=== PATIENT | female | born 1985 | race Caucasian/White ===

== ENCOUNTER → 2017-07-23 | Outpatient (CLI) | payer BC | LOC: M RAD 14:44 | DX: Z12.31 Encounter for screening mammogram for malignant neoplasm of breast (principal); Z80.3 Family history of malignant neoplasm of breast | CPT/HCPCS: 77067 ==

== ENCOUNTER → 2017-08-06 | Outpatient (REF) | payer BC | LOC: M SFHCCLAY 11:59 | DX: N30.00 Acute cystitis without hematuria (principal) | CPT/HCPCS: 87186 ==

== ENCOUNTER → 2017-11-03 | Outpatient (REF) | payer BC | LOC: M SFHCCLAY 13:52 | DX: R50.9 Fever, unspecified (principal) ==

== ENCOUNTER → 2017-11-12 | Outpatient (CLI) | payer BC | LOC: M RAD 13:20 | DX: N92.0 Excessive and frequent menstruation with regular cycle (principal) | CPT/HCPCS: 76856 ==

== ENCOUNTER → 2017-12-09 | Outpatient (REF) | payer BC ==
[2017-12-09 12:19] LABS: HEMATOCRIT 38.6 % (36.0-47.0); MEAN CORPUSCULAR HEMOGLOBIN 29.4 pg (27.0-33.0); MEAN CORPUSCULAR HGB CONC 33.7 g/dl (32.0-36.5); MEAN CORPUSCULAR VOLUME 87.3 fl (80.0-96.0); PLATELET COUNT, AUTOMATED 264 10^3/uL (150-450); RED BLOOD COUNT 4.42 10^6/uL (4.00-5.40); RED CELL DISTRIBUTION WIDTH 13.2 % (11.5-14.5); WHITE BLOOD COUNT 5.4 10^3/uL (4.0-10.0)
[2017-12-09 12:46] LABS: FREE T4 1.22 NG/DL (0.76-1.46)
[2017-12-09 13:17] LABS: PROGESTERONE 0.7 NG/ML
[2017-12-14 08:11] LABS: 17 HYDROXY PROGESTERONE 15 ng/dL (.); DEHYDROEPIANDROSTERONE SULFATE 304.5 ug/dL (84.8-378.0); INSULIN FREE 4.6 uU/mL (.); INSULIN TOTAL2 4.7 uU/mL (.); TESTOSTERONE FREE (DIRECT) 3.8 pg/mL (0.0-4.2)
== END ==
LOC: M LABDRAWC 11:22
DX: N92.0 Excessive and frequent menstruation with regular cycle (principal)
CPT/HCPCS: 83525

== ENCOUNTER → 2018-03-24 | Outpatient (CLI) | payer BC ==
[2018-03-24 13:27] LABS: BASO % 0.2 % (0.0-1.0); EOS % 0.4 % (0.0-3.0); HEMATOCRIT 36.9 % (36.0-47.0); HEMOGLOBIN 12.5 g/dl (12.0-15.5); IMMATURE GRANULOCYTE % 0.5 % (0-3.0); LYMPH # 1.6 10^3/uL (1.5-4.5); LYMPH % 16.4 % (24.0-44.0); MEAN CORPUSCULAR HEMOGLOBIN 29.3 pg (27.0-33.0); MEAN CORPUSCULAR HGB CONC 33.9 g/dl (32.0-36.5); MEAN CORPUSCULAR VOLUME 86.4 fl (80.0-96.0); MONO # 0.6 10^3/uL (0.0-0.8); MONO % 5.6 % (0.0-5.0); NEUTROPHILS # 7.6 10^3/uL (1.8-7.7); NEUTROPHILS % 76.9 % (36.0-66.0); PLATELET COUNT, AUTOMATED 259 10^3/uL (150-450); RED BLOOD COUNT 4.27 10^6/uL (4.00-5.40); RED CELL DISTRIBUTION WIDTH 13.3 % (11.5-14.5); WHITE BLOOD COUNT 9.9 10^3/uL (4.0-10.0)
[2018-03-24 14:57] LABS: CHLAMYDIA DNA AMPLIFICATION NEGATIVE (NEGATIVE); GC DNA AMPLIFICATION NEGATIVE (NEGATIVE)
[2018-03-24 15:08] LABS: ALBUMIN 3.2 GM/DL (3.2-5.2); ALBUMIN/GLOBULIN RATIO 0.97 (1.00-1.93); ALKALINE PHOSPHATASE 55 U/L (45-117); ALT/SGPT 22 U/L (12-78); ANION GAP 11 MEQ/L (8-16); AST/SGOT 10 U/L (7-37); BILIRUBIN,TOTAL 0.2 MG/DL (0.2-1.0); BLOOD UREA NITROGEN 8 MG/DL (7-18); CALCIUM LEVEL 8.6 MG/DL (8.5-10.1); CARBON DIOXIDE LEVEL 22 MEQ/L (21-32); CHLORIDE LEVEL 107 MEQ/L (98-107); CREATININE FOR GFR 0.39 MG/DL (0.55-1.30); GLOMERULAR FILTRATION RATE > 60.0 (>60); GLUCOSE, FASTING 72 MG/DL (70-100); LDH LACTATE DEHYDROGENASE 179 U/L (84-246); POTASSIUM SERUM 3.7 MEQ/L (3.5-5.1); SODIUM LEVEL 140 MEQ/L (136-145); TOTAL PROTEIN 6.5 GM/DL (6.4-8.2); URIC ACID 3.5 MG/DL (2.6-6.0)
[2018-03-24 16:26] LABS: CREATININE,RANDOM URINE 88.1 MG/DL
[2018-03-24 22:50] LABS: ESTIMATED AVERAGE GLUCOSE 88 MG/DL (60-110); HEMOGLOBIN A1c 4.7 %
[2018-03-25 11:57] LABS: RUBELLA IgG QUALITATIVE IMMUNE (IMMUNE)
[2018-03-25 12:03] LABS: HBsAg Prenatal NEGATIVE (NEGATIVE)
[2018-03-25 12:27] LABS: HEPATITIS C VIRUS ABY INDEX 0.2 INDEX (<0.8); HIV 1&2 SCREEN CENTAUR NEGATIVE (NEGATIVE)
== END ==
LOC: M LAB 12:33
DX: O99.211 Obesity complicating pregnancy, first trimester (principal); Z87.59 Personal history of other complications of pregnancy, childbirth and the puerperium
CPT/HCPCS: 84460

== ENCOUNTER → 2018-04-20 | Outpatient (CLI) | payer BC | LOC: M RAD 09:48 | DX: Z34.82 Encounter for supervision of other normal pregnancy, second trimester (principal) | CPT/HCPCS: 76811 ==

== ENCOUNTER 2018-05-26 15:24 | Outpatient (CLI) | payer BC ==
[2018-05-26] MEDS ORDERED: LACTATED RINGER'S 1000 ML IV ×2 (16:15)
[2018-05-26] MEDS ORDERED: LR 1,000 ML IV ×2 (16:15)
[2018-05-26 17:45] LABS: AMORPHOUS SEDIMENT LARGE (NEGATIVE); APPEARANCE, URINE TURBID (CLEAR); BACTERIA, URINE AUTO NEGATIVE (NEGATIVE); BILIRUBIN, URINE AUTO 1+ (NEGATIVE); BLOOD, URINE BLOOD 2+ (NEGATIVE); COLOR, URINE AMBER (YELLOW); GLUCOSE, URINE (UA) AUTO 1+ mg/dL (NEGATIVE); KETONE, URINE AUTO 1+ mg/dL (NEGATIVE); LEUKOCYTE ESTERASE, URINE AUTO 2+ (NEGATIVE); MUCUS, URINE LARGE (NEGATIVE); NITRITE, URINE AUTO NEGATIVE (NEGATIVE); PROTEIN, URINE AUTO 2+ mg/dL (NEGATIVE); RBC, URINE AUTO 82 /HPF (0-3); SPECIFIC GRAVITY URINE AUTO 1.018 (1.002-1.035); SQUAMOUS EPITHELIAL CELL UR AU 35 /HPF (0-6); WBC, URINE AUTO TNTC /HPF (0-3)
[2018-05-26 19:43] LABS: CHLAMYDIA DNA AMPLIFICATION NEGATIVE (NEGATIVE); GC DNA AMPLIFICATION NEGATIVE (NEGATIVE)
[2018-05-26] MEDS: ceFAZolin SOD 1 GM in D5W MINI-BAG PLUS 50 ML IV (20:24)
[2018-05-26 21:19] LABS: AMORPHOUS SEDIMENT MODERATE (NEGATIVE); APPEARANCE, URINE TURBID (CLEAR); BACTERIA, URINE AUTO NEGATIVE (NEGATIVE); BILIRUBIN, URINE AUTO NEGATIVE (NEGATIVE); BLOOD, URINE BLOOD 3+ (NEGATIVE); COLOR, URINE AMBER (YELLOW); GLUCOSE, URINE (UA) AUTO NEGATIVE (NEGATIVE); KETONE, URINE AUTO 2+ mg/dL (NEGATIVE); LEUKOCYTE ESTERASE, URINE AUTO 3+ (NEGATIVE); MUCUS, URINE LARGE (NEGATIVE); NITRITE, URINE AUTO NEGATIVE (NEGATIVE); PROTEIN, URINE AUTO 1+ mg/dL (NEGATIVE); RBC, URINE AUTO 24 /HPF (0-3); SPECIFIC GRAVITY URINE AUTO 1.012 (1.002-1.035); SQUAMOUS EPITHELIAL CELL UR AU 13 /HPF (0-6); WBC, URINE AUTO TNTC /HPF (0-3)
[2018-05-27 10:48] LABS: HEPATITIS A ANTIBODY IGM NEGATIVE (NEGATIVE); HEPATITIS B CORE ANTIBODY IGM NEGATIVE (NEGATIVE); HEPATITIS B SURFACE ANTIGEN NEGATIVE (NEGATIVE)
[2018-05-27 10:48] LABS: HEPATITIS C VIRUS ABY INDEX < 0.0 INDEX (<0.8)
[2018-05-27 10:58] LABS: HIV 1&2 SCREEN CENTAUR NEGATIVE (NEGATIVE)
== END 2018-05-27 00:36 | disposition home or self-care (01) ==
LOC: M LDO 15:24
DX: O26.892 Other specified pregnancy related conditions, second trimester (principal); R10.30 Lower abdominal pain, unspecified; O26.852 Spotting complicating pregnancy, second trimester; Z3A.25 25 weeks gestation of pregnancy
CPT/HCPCS: J0690

== ENCOUNTER → 2018-06-27 | Outpatient (CLI) | payer BC ==
[2018-06-27 12:28] LABS: BASO % 0.1 % (0.0-1.0); EOS # 0.1 10^3/uL (0.0-0.50); EOS % 0.5 % (0.0-3.0); HEMATOCRIT 35.9 % (36.0-47.0); HEMOGLOBIN 12.1 g/dl (12.0-15.5); IMMATURE GRANULOCYTE % 0.4 % (0-3.0); LYMPH # 1.4 10^3/uL (1.5-4.5); LYMPH % 13.1 % (24.0-44.0); MEAN CORPUSCULAR HEMOGLOBIN 30.3 pg (27.0-33.0); MEAN CORPUSCULAR HGB CONC 33.7 g/dl (32.0-36.5); MONO # 0.6 10^3/uL (0.0-0.8); MONO % 5.8 % (0.0-5.0); NEUTROPHILS # 8.5 10^3/uL (1.8-7.7); NEUTROPHILS % 80.1 % (36.0-66.0); PLATELET COUNT, AUTOMATED 246 10^3/uL (150-450); RED BLOOD COUNT 3.99 10^6/uL (4.00-5.40); RED CELL DISTRIBUTION WIDTH 13.3 % (11.5-14.5); WHITE BLOOD COUNT 10.6 10^3/uL (4.0-10.0)
[2018-06-27 12:46] LABS: GLUCOSE CHALLENGE TEST 1 HOUR 114 MG/DL (LESS THAN 140)
== END ==
LOC: M LAB 11:05
DX: Z36.89 Encounter for other specified antenatal screening (principal)
CPT/HCPCS: 82950

== ENCOUNTER → 2018-07-02 | Outpatient (REF) | payer BC | LOC: M LAB REF 16:57 | DX: Z36.89 Encounter for other specified antenatal screening (principal) | CPT/HCPCS: 87086 ==

== ENCOUNTER → 2018-07-31 | Outpatient (CLI) | payer BC ==
[~2018-07-31] MED LIST: ACET50TA PO; CEPH500C PO; COLA50CA3 PO; IBUP600T26 PO; IBUP60TA PO; LABE20TAB PO; MAPA500T2 PO; RANI15TA PO
--- NOTE | 2018-07-31 19:52 | REP ---
FOLLOWUP OB ULTRASOUND: 07/31/2018. Clinical history: Preexisting essential hypertension. Evaluate growth. Comparison: 04/20/2018. Based on her initial ultrasound she would be 35 weeks 3 days with EDC 09/01/2018. There is a single intrauterine gestation in vertex position with cervix 3.7 cm long and closed. There is an anterior grade 2 placenta without previa or abruption. Amniotic fluid volume is visually normal and the index 11.8 cm and the largest fluid pocket 3.4 cm. Mid cord umbilical artery Doppler shows an S/D ratio 2.32 with normal forward diastolic flow. Resistive index is 0.57. biometry. BPD 9.2 cm 37 weeks 2 days HC 33 cm 37 weeks 4 days AC 32.3 cm 36 weeks 1 day FL 6.8 cm 35 weeks H L 6 cm 34 weeks 3 days. This gives average ultrasound age 36 weeks 1 day with EDC 08/27/2018. Estimated weight 2865 grams or 6 pounds 5 ounces. This is 63rd percentile for dating based on the initial ultrasound. This is normal interval growth. heart activity noted at 144. anatomy screen shows cranial vault, lateral ventricles, choroid plexus, thalami, cavum septum pellucidum, lungs, diaphragm, stomach, three-vessel cord, kidneys and bladder all unremarkable. The structures are not visualized but all have previously been seen and appear normal. No evidence of a nuchal cord today. Impression: 1. Single intrauterine gestation in vertex position with a closed 3.7 cm long cervix, anterior grade 2 placenta without previa or abruption and visually normal amniotic fluid volume with an index 11.8 cm. 2. Size and dates show normal interval growth compared to initial ultrasound with estimated weight 63rd percentile. All of this normal. 3. The visualized anatomic structures were unremarkable. Much of the anatomy obscured by crowding from late third trimester timing of this examination. Anatomy previously screen unremarkable. Heart rate 144 and regular. Electronically Signed by Joseph Smith MD 08/02/2018 11:47 A
== END ==
LOC: M RAD 14:46
PROVIDERS: ATTEND Specialist
DX: Z36.9 Encounter for antenatal screening, unspecified (principal); Z3A.36 36 weeks gestation of pregnancy

== ENCOUNTER → 2018-08-10 | Outpatient (REF) | payer BC | LOC: M LAB REF 17:31 | PROVIDERS: ATTEND Advanced Practice Midwife | DX: Z34.83 Encounter for supervision of other normal pregnancy, third trimester (principal); Z3A.00 Weeks of gestation of pregnancy not specified ==

== ENCOUNTER 2018-08-16 09:11 | Inpatient (IN) | payer BC ==
[2018-08-16] VITALS (111 sets, daily range): BP systolic 81–180; BP diastolic 45–110
[~2018-08-16] VITALS: Ht 177.8 cm; Wt 109.8 kg
[2018-08-16] MEDS ORDERED: LACTATED RINGER'S 1000 ML IV STA (12:12)
--- NOTE | 2018-08-16 12:22 | NUR ---
L&D H&P HPI: 32 year old at 37+1 weeks estimated gestation. Expected date of confinement: 09/05/18. dated by a first TM US. Presents today with complaint of leakage of clear fluid since this AM. Denies vaginal bleeding, or frequent/painful uterine contractions. Reports regular movement. course c/b h/o GHTN labs: Blood type O+, antibody screen negative, rubella immune, VDRL nonreactive , hepatitis B surface antigen negative, HIV negative, hepatitis C antibody negative, GC/CT negative, aneuploidy/maternal serum screening: not done, 1 hour glucose challenge test: 114, GBS negative Vaccinations: Tdap 07/20/18 Radiology/OB US: no anomalies or placental abnormalities detected. History Past medical history: GHTN (CHTN?) Surgical history: none Medications: PNV Allergies: Sulfa POULTRY CULLER history: no STI/gHSV, no dysplasia OB history: x 3 (41, 36, and 38 weeks; all IOL for GHTN); largest 8lbs 13oz.. SAB x 1. Social history: no t/e/d Family history: DM2, HTN, Leukemia (sister, age 26). no MR, VTE Objective Vitals: Normotensive, normal heart rate, afebrile Heart: Regular rate and rhythm. No murmurs, rubs or gallops. Lungs: Clear to auscultation bilaterally. No wheezes, crackles, rales or rhonchi. Abdomen: Uterine fundal height consistent with dates. No guarding or rebound tenderness. Extremities: No clubbing, cyanosis or edema. Normal deep tendon reflexes. Sterile vaginal exam: 3-4 cm, 75 %effacement, -3station, cephalic, grossly ruptured (+nitrazine/ferning) External monitoring: heart rate category 1 Tocodynamometer: contractions occurring intermittently Assessment/Plan 32 year old at 37+1 weeks gestation. Diagnosis: Premature rupture of membranes. Reassuring and maternal status. -Admit to labor and delivery with routine labs and orders -External monitoring and tocodynamometer -Pediatrics and anesthesia consultations as needed. -Augment labor with Pitocin Dr. iMchael Dejesus, DO, FACOG
[2018-08-16] MEDS ORDERED: OXYTOCIN DRIP 30 UNITS in APPROPRIATE DILUENT 1 EA IV SCH ×2 (12:30→17:51)
[2018-08-16 13:18] LABS: HEMOGLOBIN 12.8 g/dl (12.0-15.5); MEAN CORPUSCULAR HEMOGLOBIN 29.4 pg (27.0-33.0); MEAN CORPUSCULAR HGB CONC 33.7 g/dl (32.0-36.5); MEAN CORPUSCULAR VOLUME 87.4 fl (80.0-96.0); PLATELET COUNT, AUTOMATED 271 10^3/uL (150-450); RED BLOOD COUNT 4.35 10^6/uL (4.00-5.40); WHITE BLOOD COUNT 13.2 10^3/uL (4.0-10.0)
[2018-08-16 13:21] LABS: ALT/SGPT 20 U/L (12-78); BILIRUBIN,TOTAL 0.5 MG/DL (0.2-1.0); GLOMERULAR FILTRATION RATE > 60.0 (>60); LDH LACTATE DEHYDROGENASE 176 U/L (84-246); URIC ACID 3.8 MG/DL (2.6-6.0)
[2018-08-16 13:31] LABS: TOTAL PROTEIN,RANDOM URINE 38.6 MG/DL (0.0-12.0)
[2018-08-16] MEDS ORDERED: FENTANYL 2MCG/ML ROPIVACAINE 0.2% IN 0.9% NACL 100ML IVBAG As Ordered ONE (13:37)
[2018-08-16] MEDS: LR 1,000 ML IV SCH ×3 (14:17→17:51)
--- NOTE | 2018-08-16 15:31 | NUR ---
Progress Note Called into room by RN and Anesthesia provider. Pt was having her epidural administered. Shortly after the test dose, the patient complained of difficulty breathing / swallowing, numbness in the upper and lower extremities, and feeling faint. A syncopal episode ensued, followed by an altered mental sta tus. Convulsions were not witnessed. After several minutes, she became responsive to her name and she was able to verbalize how she was feeling. She was able to follow commands and exhibit control of her upper extremities. Intrathecal administration of anesthetics suspected (test dose of lidocaine, and loading dose of Fentanyl, Ropivacaine). Upon onset of her symptoms, she became bradycardic into 50-60bpm. BP 81/45. O2 sat: 96-100% with non-rebreather face mask. She was given a dose of ephedrine and phenylephrine by Anesthesia, and her BP and HR quickly improved. FHR pattern changed from Cat I to Cat II for a brief period of time at the peak of patient's symptoms. An FSE was easily placed shortly after I arrived into the room and noted a Cat II FHR. Pt still expressing clear amniotic fluid. SVE: 4-5cm/75%/-3. FHR recovered back to Cat I after administration of ephedrine and phenylephrine. Discussed with anesthesia that the plan is to continue supportive care and close observation. Will restart Pitocin/augmentation of labor once Cat I persists. Rui Dejesus, DO
[2018-08-16] MEDS ORDERED: FENTANYL/ROPIVACAINE/NACL BAG 100 ML EPIDURAL SCH (16:00)
[2018-08-16] MEDS ORDERED: diphenhydrAMINE INJ 50MG/ML VIAL (J1200) IV PRN (16:00)
[2018-08-16] MEDS ORDERED: REFRIGERATOR IV KEYS XX PRN (16:00)
[2018-08-16] MEDS ORDERED: LACTATED RINGER'S 1000 ML IV PRN (16:00)
[2018-08-16] MEDS ORDERED: NALOXONE INJ 0.4 MG/1 ML VIAL (J2310) IV PRN (16:00)
[2018-08-16] MEDS ORDERED: ONDANSETRON 4MG/2ML VIAL (J2405) IV PRN ×2 (16:00→18:00)
[2018-08-16] MEDS ORDERED: EPIDURAL COMMENT XX SCH (16:00)
[2018-08-16] MEDS ORDERED: EPIDURAL/PCA KEYS XX PRN (16:00)
[2018-08-16] MEDS ORDERED: ePHEDrine SULFATE 25 MG/5 ML(5MG/ML) SYRINGE IV PRN (16:00)
--- NOTE | 2018-08-16 17:58 | NUR ---
Delivery note Spontaneous vaginal delivery Estimated gestational age at delivery: 37+1 weeks The active phase and second stage of labor progressed in normal fashion. Patient received Pitocin labor augmentation. FHR Cat I. The head delivered left occiput anterior and restituted left occiput transverse. No nuchal cord was noted. The anterior shoulder delivered with gentle downward guidance and the remainder of the body delivered with ease. Cord clamping was delayed for approximately 1 minute after delivery. After doubly clamping the cord, I cut the cord. The was placed on the patient's chest for immediate bonding. [place] data: Apgars 9 and 9. weight 3070 grams 6 pounds, 12 ounces. Time of delivery: 1733. Sex: Female. The third stage of labor was actively managed with a bolus of IV Pitocin (30 units in 500 mL of normal saline). The placenta delivered with manual extraction, and was noted to be completely intact with no missing cotyledons at 1739. A three-vessel cord with a central insertion was noted. After delivery of the placenta, the uterine fundus was approximately 2 cm below the umbilicus and firm. IV Pitocin was continued to maintain uterine tone. A normal, low level of uterine bleeding was noted. The cervix, vagina, vulva and perineum were inspected for lacerations. No laceration was noted. Excellent hemostasis was noted. Estimated blood loss: 200ml. All sponges, needles, and instruments were accounted for per PRODUCTION ENGINE REPAIRER department protocol. Michael Dejesus D.O., F.Brooklynn.Maria Elena.OVicente.
[2018-08-16] MEDS ORDERED: RHOGAM 300 MCG (1500 IU) INJ (J2790) IM SCH (18:00)
[2018-08-16] MEDS ORDERED: MEASLES,MUMPS,RUBELLA VACCINE INJ (MMR-II) (90707) SC SCH (18:00)
[2018-08-16] MEDS ORDERED: DOCUSATE SODIUM 100 MG CAP PO PRN (18:00)
[2018-08-16] MEDS ORDERED: DIBUCAINE 1% OINTMENT 30GM TOP PRN (18:00)
[2018-08-16] MEDS ORDERED: PROMETHAZINE 25 MG TAB PO PRN (18:00)
[2018-08-16] MEDS ORDERED: LABETALOL HCL 100 MG/20 ML VIAL IV STA (18:11)
[2018-08-16] MEDS ORDERED: ceFAZolin 2 GM/D5W 50 ML IV BAG (J0690 PER 500MG) As Ordered ONE (18:15)
[2018-08-16] MEDS ORDERED: KETOROLAC 30 MG/ML VIAL (J1885) As Ordered ONE (18:39)
[2018-08-16] MEDS ORDERED: KETOROLAC 30 MG/ML VIAL (J1885) IV ONE (19:00)
[2018-08-16] MEDS: ACETAMINOPHEN 500 MG TAB PO PRN (22:01)
[2018-08-17 00:45] VITALS: BP 136/80
[2018-08-17] MEDS: LR 1,000 ML IV SCH (01:51)
[2018-08-17] MEDS: IBUPROFEN 800 MG TAB PO PRN ×3 (02:30→19:35)
[2018-08-17 06:05] VITALS: BP 134/75
[2018-08-17] MEDS: ACETAMINOPHEN 500 MG TAB PO PRN ×2 (06:58→21:05)
--- NOTE | 2018-08-17 07:01 | NUR ---
PPD#1 s/p Pain well controlled, voiding spontaneously, ambulating without assistance, tolerating PO, and lochia is decreasing / minimal. Denies CAZARES, visual changes, RUQ pain, sob, or cp. VSS, currently normotensive (intermittently hypertensive/mild range), normal HR, afebrile H: RRR no m/g/r L: CTA b/l Abd: soft,nt,nd,U-2cm firm and nt Ext: no c/c/e A/P: PPD#1. Hemodynamically stable, afebrile, good pain control. -Routine care -D/c home tomorrow. Rui Dejesus DO
[2018-08-17] MEDS: PRENATAL VITAMINS CHEWABLE TABLET PO SCH (09:11)
[2018-08-17 18:00] VITALS: BP 136/73
[2018-08-18] MEDS: IBUPROFEN 800 MG TAB PO PRN (03:11)
[2018-08-18 06:00] VITALS: BP 131/55
[2018-08-18] MEDS ORDERED: IBUP1TAB7 PO (07:32)
[2018-08-18] MEDS ORDERED: PRENTAB7 PO (07:32)
[2018-08-18] MEDS ORDERED: ACET-683 PO (07:32)
[2018-08-18] MEDS: PRENATAL VITAMINS CHEWABLE TABLET PO SCH (07:55)
== END 2018-08-18 11:10 | disposition home or self-care (01) | DRG 541 ==
LOC: M LDO 09:11 → M LDI 12:11 → M OBS 08-17 00:23
PROVIDERS: ADMIT Obstetrics & Gynecology; ATTEND Obstetrics & Gynecology
PROC: 10E0XZZ Delivery of Products of Conception, External Approach (ICD-10-PCS; principal; 2018-08-16)
PROC: 10D17Z9 Manual Extraction of Products of Conception, Retained, Via Natural or Artificial Opening (ICD-10-PCS; 2018-08-16)
DX: O42.02 Full-term premature rupture of membranes, onset of labor within 24 hours of rupture (principal); Z37.0 Single live birth; Z3A.37 37 weeks gestation of pregnancy; O73.0 Retained placenta without hemorrhage

== ENCOUNTER 2018-08-30 06:29 | Emergency (ER) | payer BC ==
[~2018-08-30] VITALS: Ht 177.8 cm; Wt 100.0 kg
[~2018-08-30 06:29] MED LIST changes: +ACET-683 PO; +IBUP1TAB7 PO; +PRENTAB7 PO
[2018-08-30] MEDS ORDERED: NS 1,000 ML IV ONE (07:30)
[2018-08-30 07:49] LABS: BASO % 0.4 % (0.0-1.0); EOS # 0.1 10^3/uL (0.0-0.50); EOS % 0.6 % (0.0-3.0); HEMATOCRIT 44.3 % (36.0-47.0); LYMPH # 1.4 10^3/uL (1.5-4.5); LYMPH % 12.9 % (24.0-44.0); MEAN CORPUSCULAR HEMOGLOBIN 29.5 pg (27.0-33.0); MEAN CORPUSCULAR HGB CONC 33.9 g/dl (32.0-36.5); MEAN CORPUSCULAR VOLUME 87.2 fl (80.0-96.0); MONO # 0.5 10^3/uL (0.0-0.8); MONO % 4.6 % (0.0-5.0); NEUTROPHILS # 8.7 10^3/uL (1.8-7.7); PLATELET COUNT, AUTOMATED 348 10^3/uL (150-450); RED BLOOD COUNT 5.08 10^6/uL (4.00-5.40); WHITE BLOOD COUNT 10.8 10^3/uL (4.0-10.0)
[2018-08-30 08:18] LABS: ALBUMIN 3.5 GM/DL (3.2-5.2); ALT/SGPT 20 U/L (12-78); BILIRUBIN,DIRECT 0.1 MG/DL (0.0-0.2); BILIRUBIN,TOTAL 0.3 MG/DL (0.2-1.0); BLOOD UREA NITROGEN 12 MG/DL (7-18); CALCIUM LEVEL 8.6 MG/DL (8.5-10.1); CARBON DIOXIDE LEVEL 26 MEQ/L (21-32); CHLORIDE LEVEL 105 MEQ/L (98-107); CREATININE FOR GFR 0.59 MG/DL (0.55-1.30); GLOMERULAR FILTRATION RATE > 60.0 (>60); GLUCOSE, FASTING 91 MG/DL (70-100); POTASSIUM SERUM 4.1 MEQ/L (3.5-5.1); SODIUM LEVEL 138 MEQ/L (136-145); TOTAL PROTEIN 7.6 GM/DL (6.4-8.2)
[2018-08-30 10:30] VITALS: BP 131/80
[2018-08-30] MEDS ORDERED: METHYLERGONOVINE MALEATE 0.2 MG/ML VIAL (J2210) IM STA (10:41)
[2018-08-30] MEDS ORDERED: METH0.2T53 PO (10:42)
--- NOTE | 2018-08-30 12:26 | REP ---
PELVIC ULTRASOUND: Real-time sonographic evaluation of the pelvis performed utilizing transabdominal technique. Patient is 2 weeks and therefore endovaginal imaging is not performed. Bladder measures 10.2 x 6.1 x 9.6 cm. Uterus measures 10.7 x 6.8 x 8.7 cm. Two fibroids are seen on the left measuring 2.4 x 2.2 x 2.5 cm and 1.2 x 0.7 x 0.9 cm. Endometrial thickness is 12 mm. Endometrium is diffusely heterogeneous. I cannot exclude a small amount of retained products of conception. There is no fluid collection in the endometrial cavity. Ovaries are normal in size and echotexture, right ovary measuring 2.6 x 1.6 x 1.7 cm and left ovary 2.6 x 1.9 x 2.0 cm. There is no adnexal mass or free fluid. There is no torsion of either ovary, resistive index right ovary 0.67 and left ovary 0.56. IMPRESSION: Endometrium measures 12 mm and is heterogeneous without an endometrial fluid collection. Cannot rule out small amount of retained products of conception. Two fibroids are seen in the left uterus. No adnexal mass, free fluid, or torsion. Electronically Signed by Eusebio Hagen MD 08/30/2018 07:03 P
[2018-09-11] MEDS ORDERED: IBUP200C25 PO (15:10)
== END 2018-08-30 10:56 | disposition home or self-care (01) ==
LOC: M ED 06:29
DX: O99.89 Other specified diseases and conditions complicating pregnancy, childbirth and the puerperium (principal); N93.9 Abnormal uterine and vaginal bleeding, unspecified; O16.3 Unspecified maternal hypertension, third trimester; Z3A.37 37 weeks gestation of pregnancy; Z88.2 Allergy status to sulfonamides
CPT/HCPCS: 76856; 80048; 80076; 85025; 86850; 86900; 86901; 87040; 93041; 93976; 96372; 99284; J2210

== ENCOUNTER 2018-09-16 09:58 | Day surgery (SDC) | payer BC ==
[~2018-09-16] VITALS: Ht 177.8 cm; Wt 98.9 kg
[~2018-09-16 09:58] MED LIST changes: +IBUP200C25 PO; +LIDOCAINE 2% INJ 100 MG/5 ML SDV (FOR ANES.) As Ordered ONE; +METH0.2T53 PO; +MIDAZOLAM INJ 2 MG/2 ML VIAL (J2250) As Ordered ONE; +ONDANSETRON 4MG/2ML VIAL (J2405) As Ordered ONE; +PROPOFOL 200 MG/20 ML VIAL As Ordered ONE; +ROCURONIUM BROMIDE 50 MG/5 ML VIAL As Ordered ONE; +dexameTHASONE 4 MG/ML 1ML VIAL (J1100) As Ordered ONE; +fentaNYL 250 MCG/5 ML INJECTION (J3010) As Ordered ONE
[2018-09-16 10:20] LABS: HEMATOCRIT 41.9 % (36.0-47.0); HEMOGLOBIN 13.9 g/dl (12.0-15.5); MEAN CORPUSCULAR HGB CONC 33.2 g/dl (32.0-36.5); MEAN CORPUSCULAR VOLUME 87.5 fl (80.0-96.0); PLATELET COUNT, AUTOMATED 290 10^3/uL (150-450); RED BLOOD COUNT 4.79 10^6/uL (4.00-5.40); WHITE BLOOD COUNT 7.1 10^3/uL (4.0-10.0)
[2018-09-16] MEDS ORDERED: BUPIVACAINE HCL 0.25% 30 ML VIAL As Ordered ONE (10:30)
[2018-09-16 10:51] LABS: HCG, SERUM QUALITATIVE NEGATIVE (NEGATIVE)
[2018-09-16] MEDS ORDERED: PHENYLephrine HCL 500 MCG/5 ML (100MCG/ML) SYRINGE (J2370) As Ordered ONE (11:17)
[2018-09-16] MEDS ORDERED: PHENYLEPHRINE INJ 10MG/ML VIAL (J2370) As Ordered ONE (11:20)
[2018-09-16] MEDS ORDERED: GLYCOPYRROLATE INJ 0.2 MG/ML 2 ML VIAL As Ordered ONE (11:20)
[2018-09-16] MEDS ORDERED: KETOROLAC 60 MG/2 ML VIAL (J1885) As Ordered ONE (11:33)
[2018-09-16] MEDS ORDERED: NEOSTIGMINE 10 MG/10 ML VIAL (J2710) As Ordered ONE (11:35)
[2018-09-16] MEDS ORDERED: HYDROmorphone HCL 2 MG/ML 1ML VIAL (J1170) As Ordered ONE (11:36)
[2018-09-16] MEDS ORDERED: IBUP1TAB7 PO (11:57)
[2018-09-16] MEDS ORDERED: ePHEDrine SULFATE 25 MG/5 ML(5MG/ML) SYRINGE As Ordered ONE (11:59)
[2018-09-16] MEDS ORDERED: PERCOCET PO (12:01)
[2018-09-16] MEDS ORDERED: LR 1,000 ML IV ONE (12:30)
[2018-09-16] MEDS ORDERED: LR 1,000 ML IV SCH (12:30)
[2018-09-16] MEDS ORDERED: fentaNYL 100 MCG/2 ML INJECTION (J3010) IV PRN (12:30)
[2018-09-16] MEDS ORDERED: ONDANSETRON 4MG/2ML VIAL (J2405) IV PRN (12:30)
[2018-09-16] MEDS ORDERED: NORCO, ANEXSIA 5/325MG TABLET (HYDROcodone/ACETAMINOPHEN) PO PRN (12:30)
[2018-09-16] MEDS ORDERED: PERCOCET 5MG/325MG TAB PO PRN (12:30)
--- NOTE | 2018-09-16 12:57 | RO ---
DATE OF PROCEDURE: 09/16/2018 PREOPERATIVE DIAGNOSIS: Satisfied parity with undesired fertility. POSTOPERATIVE DIAGNOSIS: Satisfied parity with undesired fertility. PROCEDURE PERFORMED: Laparoscopic bilateral salpingectomy for purpose of tubal ligation. SURGEON: Jes Hernández MD SILVER STEWARD: None. ANESTHESIA: General endotracheal anesthesia. ESTIMATED BLOOD LOSS: 5 mL. INTRAVENOUS FLUIDS: 800 mL of lactated Ringer solution. URINE OUTPUT: 300 mL. OPERATIVE FINDINGS: Patient with a small right follicular cyst, otherwise normal appearing pelvic anatomy, anterior uterus, bilateral adnexa. Appendix was visualized and appeared to be normal. SPECIMENS: Bilateral fallopian tubes. PREOPERATIVE ANTIBIOTICS: None. INFECTION CLASSIFICATION: 1. DESCRIPTION OF OPERATION: After informed consent was obtained and written content was reviewed, the patient was brought to the operating room where general endotracheal anesthesia was obtained. She was then placed in lithotomy position and was prepped and draped in a normal sterile fashion. A time-out in operating room was then performed identifying the patient, procedure to be performed, as well as drug allergy. A bivalve speculum was placed revealing the cervix. The anterior lip of the cervix was grasped with a single-tooth tenaculum. The uterus was then sounded to 11 cm. A Hulka tenaculum was then advanced for means to manipulate the uterus. Single-tooth tenaculum and speculum was then removed. A Lui catheter was then placed and set gravity. Gloves were changed and attention was turned to the patient's abdomen, where a 0.25% Marcaine was infused in umbilical region. An incision was made in this area and a 5 mm trocar and sleeve was advanced through this incision. The laparoscope was replaced revealing intra-abdominal placement. A pneumoperitoneum was then obtained with CO2 gas. The abdomen was then surveyed with the above noted finding. Next, air was infused 2 cm above the pubis symphysis and in the midline of this area an incision was made and an 8 mm trocar and sleeve was advanced through this incision under direct visualization. A third port was placed parallel to the umbilicus. This area was infused with 0.25% Marcaine. An incision was made in this area and a 5 mm trocar and sleeve was advanced through this incision under direct visualization. Next, the right fallopian tube was placed on traction. Using a Harmonic Ender scalpel device, the mesosalpinx was cauterized and ligated with good hemostasis noted below the right fallopian tube and was transected at the level of the uterus once again with good hemostasis noted. The specimen was then brought out and sent to pathology. In a similar fashion, the fallopian tube was placed on traction. Using Harmonic Ender scalpel device, the mesosalpinx was cauterized below the fallopian tube and the fallopian tube was transected at the level of the uterus with good hemostasis noted. The specimen was brought out through the port site. Surgical sites were inspected and noted to be hemostatic. Pneumoperitoneum was then released. Instruments were removed from the patient's abdomen. Trocars were removed. The incisions were closed with #4-0 Monocryl and was dressed with Dermabond. Lui catheter was removed. Hulka tenaculum was removed. Tenaculum sites were inspected and noted to be hemostatic. Patient was then taken out of lithotomy position, was awakened from general anesthesia and taken to recovery in stable condition. Counts were correct.
[2018-09-16] MEDS ORDERED: PERCOCET 5MG/325MG TAB PO ONE (14:15)
[2018-09-16] MEDS ORDERED: ONDANSETRON 4MG/2ML VIAL (J2405) As Ordered ONE (15:09)
[2018-09-16 15:45] VITALS: BP 127/82
[2018-09-16] MEDS ORDERED: KETOROLAC 30 MG/ML VIAL (J1885) IV SCH (18:00)
== END 2018-09-16 15:55 | disposition home or self-care (01) ==
LOC: M SDC 09:58
PROVIDERS: ATTEND Obstetrics & Gynecology
DX: Z30.2 Encounter for sterilization (principal); Z88.2 Allergy status to sulfonamides; Z79.899 Other long term (current) drug therapy
CPT/HCPCS: 36415; 58661; 84703; 85027; 86850; 86900; 86901; 88302; J1100; J1170; J1885; J2250; J2370; J2405; J2710; J3010

== ENCOUNTER → 2019-11-10 | Outpatient (CLI) | payer BC ==
[~2019-11-10] MED LIST changes: -ACET50TA PO; +IBUP600T42 PO; -IBUP60TA PO; +LABE200T13 PO; -LABE20TAB PO; -LIDOCAINE 2% INJ 100 MG/5 ML SDV (FOR ANES.) As Ordered ONE; +MAPA500T17 PO; -MIDAZOLAM INJ 2 MG/2 ML VIAL (J2250) As Ordered ONE; -ONDANSETRON 4MG/2ML VIAL (J2405) As Ordered ONE; +PERCOCET PO; -PROPOFOL 200 MG/20 ML VIAL As Ordered ONE; -ROCURONIUM BROMIDE 50 MG/5 ML VIAL As Ordered ONE; -dexameTHASONE 4 MG/ML 1ML VIAL (J1100) As Ordered ONE; -fentaNYL 250 MCG/5 ML INJECTION (J3010) As Ordered ONE
== END ==
LOC: M LABSMTC 13:41
PROVIDERS: ATTEND Family Medicine
DX: Z11.59 Encounter for screening for other viral diseases (principal); Z20.818 Contact with and (suspected) exposure to other bacterial communicable diseases

== ENCOUNTER → 2020-03-07 | Outpatient (REF) | payer BC | LOC: M LAB REF 19:17 | PROVIDERS: ATTEND Dermatology | DX: D22.61 Melanocytic nevi of right upper limb, including shoulder (principal) ==

== ENCOUNTER → 2020-05-22 | Outpatient (REF) | payer BC | LOC: M SFHCCLAY 15:45 | PROVIDERS: ATTEND Nurse Practitioner Family | DX: J02.9 Acute pharyngitis, unspecified (principal) ==

== ENCOUNTER → 2020-05-29 | Outpatient (REF) | payer BC | LOC: M SFHCCLAY 15:49 | PROVIDERS: ATTEND Nurse Practitioner Family | DX: R30.0 Dysuria (principal) ==

== ENCOUNTER → 2020-08-01 | Outpatient (REF) | payer BC ==
[2020-08-01 13:55] LABS: HEMATOCRIT 40.7 % (36.0-47.0); HEMOGLOBIN 13.4 g/dl (12.0-15.5); MEAN CORPUSCULAR HEMOGLOBIN 29.6 pg (27.0-33.0); MEAN CORPUSCULAR HGB CONC 32.9 g/dl (32.0-36.5); PLATELET COUNT, AUTOMATED 324 10^3/uL (150-450); RED BLOOD COUNT 4.52 10^6/uL (4.00-5.40); WHITE BLOOD COUNT 7.6 10^3/uL (4.0-10.0)
[2020-08-01 15:53] LABS: CHLAMYDIA DNA AMPLIFICATION NEGATIVE (NEGATIVE); GC DNA AMPLIFICATION NEGATIVE (NEGATIVE)
[2020-08-01 16:40] LABS: FREE T4 1.19 NG/DL (0.76-1.46); THYROID STIMULATING HORMONE 1.57 uIU/ML (0.358-3.740)
== END ==
LOC: M PLALAB 11:16
PROVIDERS: ATTEND Obstetrics & Gynecology
DX: N93.9 Abnormal uterine and vaginal bleeding, unspecified (principal); D25.1 Intramural leiomyoma of uterus; Z11.3 Encounter for screening for infections with a predominantly sexual mode of transmission

== ENCOUNTER → 2020-08-01 | Outpatient (REF) | payer BC ==
[2020-08-01 15:38] LABS: CHLAMYDIA DNA AMPLIFICATION NEGATIVE (NEGATIVE); GC DNA AMPLIFICATION NEGATIVE (NEGATIVE)
== END ==
LOC: M SFHCWAGY 13:07
PROVIDERS: ATTEND Obstetrics & Gynecology
DX: Z12.4 Encounter for screening for malignant neoplasm of cervix (principal)

== ENCOUNTER → 2020-08-10 | Outpatient (CLI) | payer BC ==
--- NOTE | 2020-08-11 08:18 | REP ---
INDICATION: N93.9 AUB/D25.1 LEIOMYOMA OF UTERUS COMPARISON: None. TECHNIQUE: Transabdominal pelvic ultrasound followed by transvaginal examination for better evaluation of the endometrium and adnexa with color Doppler evaluation of the ovaries. FINDINGS: Bladder is unremarkable and measures 7.7 x 3.5 x 5.0 cm. Heterogeneous retroverted uterus measures 8.9 x 5.9 x 6.8 cm. The endometrial complex measures 12 mm thickness. Left intramural fibroid measures 5.2 x 4.2 x 5.0 cm and left lower uterine segment fibroid measures 1.2 x 1.1 x 1.2 cm. Bilateral ovaries are normal in appearance and vascularity without evidence for torsion. Right ovary measures 3.7 x 2.3 x 2.1 cm with 1.7 cm dominant follicle/physiologic cyst; R I = 0.49. Left ovary measures 2.8 x 2.2 x 2.4 cm; R I = 0.52. No pelvic fluid or adnexal mass lesion IMPRESSION: Two heterogeneous fibroid suggested. <Electronically signed by Jaun Delgado > 08/11/20 0839
== END ==
LOC: M WHC 14:23
PROVIDERS: ATTEND Obstetrics & Gynecology
DX: N93.9 Abnormal uterine and vaginal bleeding, unspecified (principal); D25.1 Intramural leiomyoma of uterus

== ENCOUNTER → 2020-11-09 | Outpatient (REF) | payer BC | LOC: M SFHCWAGY 09:57 | PROVIDERS: ATTEND Obstetrics & Gynecology | DX: N93.9 Abnormal uterine and vaginal bleeding, unspecified (principal) ==

== ENCOUNTER → 2020-11-22 | Outpatient (CLI) | payer BC | LOC: M LABSMTC 09:33 | PROVIDERS: ATTEND Anesthesiology | DX: Z01.812 Encounter for preprocedural laboratory examination (principal); Z20.822 Contact with and (suspected) exposure to COVID-19 ==

== ENCOUNTER 2020-11-27 06:58 | Day surgery (SDC) | payer BC ==
[~2020-11-27] VITALS: Ht 170.2 cm; Wt 104.2 kg
[~2020-11-27 06:58] MED LIST changes: +LR 1,000 ML IV ONE; +ceFAZolin SOD 2 GM in IV 1 EA IV ONE
[2020-11-27 07:27] LABS: HEMATOCRIT 38.2 % (36.0-47.0); HEMOGLOBIN 12.8 g/dl (12.0-15.5); MEAN CORPUSCULAR HEMOGLOBIN 29.6 pg (27.0-33.0); MEAN CORPUSCULAR HGB CONC 33.5 g/dl (32.0-36.5); MEAN CORPUSCULAR VOLUME 88.4 fl (80.0-96.0); PLATELET COUNT, AUTOMATED 248 10^3/uL (150-450); RED BLOOD COUNT 4.32 10^6/uL (4.00-5.40); WHITE BLOOD COUNT 6.5 10^3/uL (4.0-10.0)
[2020-11-27 07:47] LABS: HCG, SERUM QUALITATIVE NEGATIVE (NEGATIVE)
[2020-11-27] MEDS ORDERED: LIDOCAINE 2% 100MG/5ML SDV (FOR ANES.) As Ordered ONE (08:35)
[2020-11-27] MEDS ORDERED: propofoL 200 MG/20 ML VIAL As Ordered ONE (08:35)
[2020-11-27] MEDS ORDERED: fentaNYL 100 MCG/2 ML INJECTION (J3010) As Ordered ONE (08:35)
[2020-11-27] MEDS ORDERED: ROCURONIUM BROMIDE 50 MG/5 ML VIAL As Ordered ONE ×2 (08:35→10:26)
[2020-11-27] MEDS ORDERED: METOCLOPRAMIDE INJ 10MG/2ML VIAL (J2765 PER 1) As Ordered ONE ×2 (08:35→11:43)
[2020-11-27] MEDS ORDERED: ONDANSETRON 4MG/2ML VIAL As Ordered ONE ×2 (08:35→11:28)
[2020-11-27] MEDS ORDERED: MIDAZOLAM INJ 2MG/2ML VIAL (J2250 PER 1MG) As Ordered ONE (08:35)
[2020-11-27] MEDS ORDERED: METHYLENE BLUE 0.5% (5MG/ML) 10 ML AMP (PROVAYBLUE) As Ordered ONE (08:55)
[2020-11-27] MEDS ORDERED: BUPIVACAINE HCL 0.25% 30ML VIAL As Ordered ONE (08:55)
[2020-11-27] MEDS ORDERED: HYDROmorphone HCL 2 MG/ML 1ML VIAL (J1170) As Ordered ONE (10:26)
[2020-11-27] MEDS ORDERED: ACETAMINOPHEN 1000MG 100ML IV BTL (OFIRMEV) (J0131 PER 10MG) As Ordered ONE (10:26)
[2020-11-27] MEDS ORDERED: dexameTHASONE 4 MG/ML 1ML VIAL (J1100 PER 1MG) As Ordered ONE (10:45)
[2020-11-27] MEDS ORDERED: SUGAMMADEX SODIUM 500 MG/5 ML VIAL (BRIDION) As Ordered ONE (10:45)
[2020-11-27] MEDS ORDERED: fentaNYL 100 MCG/2 ML INJECTION (J3010) IV PRN (11:25)
[2020-11-27] MEDS ORDERED: LR 1,000 ML IV SCH ×2 (11:25)
[2020-11-27] MEDS ORDERED: ONDANSETRON 4MG/2ML VIAL IV PRN ×2 (11:25)
[2020-11-27] MEDS ORDERED: oxyCODONE 5MG TAB PO PRN (11:25)
[2020-11-27] MEDS ORDERED: HYDROMORPHONE HCL 0.5 MG/ 0.5 ML SYRINGE (J1170 PER 1) IV PRN (11:25)
[2020-11-27] MEDS ORDERED: PERCOCET 5MG/325MG TAB PO PRN ×2 (11:25)
--- NOTE | 2020-11-27 11:29 | ROOPDOC ---
[facility] Report Of Operation Report of Operation DATE OF PROCEDURE: 11/27/2020 PREPROCEDURE DIAGNOSES: Abnormal uterine bleeding, chronic pelvic pain. Uterine leiomyoma POSTPROCEDURE DIAGNOSES: Same. PROCEDURE: Robotic-assisted total laparoscopic hysterectomy, bilateral salpingectomy, cystoscopy SURGEON: Jerson GeeOG HIGH PRESSURE OPERATOR: Wandy Jimenez ANESTHESIA: General endotracheal. ESTIMATED BLOOD LOSS: Approximately 150 mL. FLUIDS REPLACED: 1200 mL LR URINE OUTPUT: 200 mL COMPLICATIONS: None. FINDINGS: Normal-appearing ovaries bilaterally. Surgically absent fallopian tubes. Uterus was approximately 12 centimeters in greatest dimension. Cystoscopy: Bilateral ureteral orifice efflux, no bladder injury/suture material. PREOPERATIVE ANTIBIOTIC PROPHYLAXIS: Ancef 2 g IV 1. SPECIMEN(S): Uterus w/ cervix, bilateral fallopian tubes DESCRIPTION OF PROCEDURE: The patient was counseled, consented on the respective benefits, indications, alternatives of procedure. Informed consent was obtained. She was taken to the operating room with an IV running. She was placed on the operating table in dorsal supine position. Gen. anesthesia was administered and the airway was secured without any difficulty. She was placed in the low lithotomy position. . She was prepared and draped in the normal sterile fashion. A time out was performed per protocol. A Lui catheter was placed under sterile conditions. A sterile speculum was placed resulting in good visualization of the cervix. A single-tooth tenaculum was used to grasp the anterior lip cervix. The cervix was sequentially dilated with Caleb dilators. A V-Care uterine manipulator was placed without any difficulty. The single-tooth tenaculum was removed, as well as the speculum. A sterile glove switch was performed. Attention was turned to the abdomen. A 2mm incision was made in the umbilicus, and through this incision a Veress needle was inserted into the intraperitoneal cavity. Intraperitoneal placement was confirmed with ease of flow of normal saline, positive drop test, no return on aspiration, and an opening pressure of less than 10 mmHg upon initial insufflation. The abdomen was insufflated with 2 L of gas. The Veress needle was removed. A supraumbilical 8 mm incision was made. Through this incision, the robotic trochar/cannula was inserted into the intraperitoneal cavity under direct visualization. No incidental bleeding nor injury was noted. Patient was placed in 30 Trendelenburg. The right and left trocars/cannulas were placed on both the right and left side through 8 mm incisions, guided by laparoscopic visualization. No incidental bleeding nor injury was noted. The robot was docked in typical fashion. The instruments were inserted, guided by laparosco pic visualization. My attention was turned to the robotic console. The right utero-ovarian ligament and right round ligament were sequentially clamped, coagulated and transected with the vessel sealer device. The vesicouterine peritoneum was dissected with the vessel sealer device to create the bladder flap, thus mobilizing the lower uterine segment and cervix off of the bladder. The right uterine vasculature was sequentially clamped, coagulated and transected above the colpotomy cup. The left utero-ovarian ligament and left round ligament were sequentially clamped, coagulated and transected with the vessel sealer device. The remainder of the bladder flap was dissected using the vessel sealer device and blunt dissection. The left uterine vasculature was sequentially clamped, coagulated and transected above the colpotomy cup. The outline of the entire V- care colpotomy cup was able to be delineated. Excellent blanching of the uterus was noted. A circumferential colpotomy was performed using the da Jelani monopolar scott, following the contour of the cup. The amputated cervix and uterus were brought through the colpotomy into and out of the vagina, intact as one unit. The colpotomy was closed with the V-lock barbed suture in running fashion, thus creating the vaginal cuff. Excellent hemostasis was noted throughout the steps above. Susanna was placed over the vaginal cuff to ensure hemostasis. The instruments were removed from the abdomen and the robot was un- docked. The gas was released from the abdomen and the patient was taken out of Trendelenburg. I re-scrubbed, and attention was turned to the pelvis. The Lui catheter was removed. The cystoscope was placed transurethrally into the bladder and normal saline was instilled. No bladder injury/suture material was noted. IV methylene blue had been administered by anesthesia and bilateral UO efflux was confirmed. The fluid was drained out of the bladder through the cystoscope device, then the cystoscope was removed. The vagina was copiously irrigated. A sterile digital vaginal exam revealed no significant bleeding and an intact vaginal cuff. A sterile glove switch was performed. The da Jelani cannulas were removed. The skin incisions were closed with 4-0 Monocryl in subcuticular fashion. Sponge, needle and instrument counts were correct per protocol. The patient tolerated the entire procedure very well. She was transferred to the PACU in good and stable condition. DO VANE Forbes JONATHAN R. DO November 27, 2020 11:29
[2020-11-27] MEDS ORDERED: OXYC1TAB23 PO (11:30)
[2020-11-27] MEDS ORDERED: COLA100C5 PO (11:32)
[2020-11-27] MEDS ORDERED: IBUP1TAB7 PO (11:32)
[2020-11-27] MEDS ORDERED: KETOROLAC 30 MG/ML 1ML VIAL IV SCH (12:00)
[2020-11-27] MEDS ORDERED: METOCLOPRAMIDE INJ 10MG/2ML VIAL (J2765 PER 1) IV PRN (12:00)
[2020-11-27 12:30] VITALS: BP 122/66
[2020-11-27 13:00] VITALS: BP 122/68
[2020-11-27 14:00] VITALS: BP 130/70
[2020-11-27 15:00] VITALS: BP 133/83
[2020-11-27 16:00] VITALS: BP 142/90
[2020-11-28] MEDS ORDERED: IBUPROFEN 800 MG TAB PO SCH (14:00)
== END 2020-11-27 17:00 | disposition home or self-care (01) ==
LOC: M SDC 06:58 → M MS5PR 12:05 → M SDC 17:00
PROVIDERS: ATTEND Obstetrics & Gynecology
DX: N93.9 Abnormal uterine and vaginal bleeding, unspecified (principal); R10.2 Pelvic and perineal pain; D25.9 Leiomyoma of uterus, unspecified; Z88.2 Allergy status to sulfonamides; N72 Inflammatory disease of cervix uteri
CPT/HCPCS: 36415; 58571; 84703; 85027; 86850; 86900; 86901; 88307; J0131; J0690; J1100; J1170; J1885; J2250; J2405; J2765; J3010; Q9968; S2900

== ENCOUNTER → 2024-09-28 | Outpatient (REF) | payer BC ==
[~2024-09-28] MED LIST changes: +COLA100C5 PO; -LR 1,000 ML IV ONE; +OXYC1TAB23 PO; -ceFAZolin SOD 2 GM in IV 1 EA IV ONE
== END ==
LOC: M LAB REF 17:03
PROVIDERS: ATTEND Physician Assistant
DX: L03.316 Cellulitis of umbilicus (principal)